=== PATIENT | female | born 1995 | race Two or more races ===

== ENCOUNTER 2024-10-29 11:49 | Emergency (ER) | payer OTHER ==
[~2024-10-29] VITALS: Ht 149.9 cm; Wt 56.7 kg
[2024-10-29] MEDS ORDERED: PRENATAL + DHA1 EAC1 PO (13:08)
[2024-10-29 13:54] LABS: MEAN CELL VOLUME 87.9 fL (80.00-100.00); MEAN CORPUSCULAR HEMOGLOBIN 30.9 pg (27.00-32.0); MEAN CORPUSCULAR HGB CONC 35.1 g/dl (32.0-36.0); PLATELET COUNT 316 K/uL (150-450); RED BLOOD COUNT 4.21 M/uL (4.00-6.00); RED CELL DISTRIBUTION WIDTH 12.1 % (11.5-14.5)
== END 2024-10-29 17:38 | disposition home or self-care (01) ==
LOC: ER 11:52
PROVIDERS: Emergency Medicine
DX: Z33.1 Pregnant state, incidental (principal); R10.2 Pelvic and perineal pain

== ENCOUNTER 2024-11-29 15:47 | Outpatient (CLI) | payer OTHER ==
[~2024-11-29 15:47] MED LIST: PRENATAL + DHA1 EAC1 PO
== END 2024-11-29 15:48 | disposition home or self-care (01) ==
LOC: PRENATAL 15:47
PROVIDERS: ATTEND Obstetrics & Gynecology Maternal & Fetal Medicine
DX: O36.80X0 Pregnancy with inconclusive fetal viability, not applicable or unspecified (principal); Z36.82 Encounter for antenatal screening for nuchal translucency; Z14.8 Genetic carrier of other disease; Z3A.12 12 weeks gestation of pregnancy

== ENCOUNTER 2025-01-24 14:12 | Outpatient (CLI) | payer OTHER ==
[2025-01-24] MEDS ORDERED: FOLIC ACID0.8 M1 PO (18:49)
== END 2025-01-24 14:13 | disposition home or self-care (01) ==
LOC: PRENATAL 14:12
PROVIDERS: ATTEND Obstetrics & Gynecology Maternal & Fetal Medicine
DX: O44.00 Complete placenta previa NOS or without hemorrhage, unspecified trimester (principal); O36.1999 Maternal care for other isoimmunization, unspecified trimester, other fetus; O26.879 Cervical shortening, unspecified trimester; Z3A.21 21 weeks gestation of pregnancy

== ENCOUNTER 2025-01-25 12:45 | Day surgery (SDC) | payer OTHER ==
[2025-01-24 17:47] VITALS: BP 113/69
[2025-01-24 18:32] LABS: BASO % 0.4 % (0.1-1.2); EOS # 0.06 (0.04-0.54); EOS % 0.6 % (0.7-7.0); HEMATOCRIT 31.7 % (34.1-44.9); HEMOGLOBIN 11.6 g/dL (11.2-15.7); LYMPH # 1.29 (1.18-3.74); LYMPH % 12.8 % (19.3-53.1); MEAN CORPUSCULAR HEMOGLOBIN 31.8 pg (25.6-32.2); MONO # 0.79 (0.24-0.82); MONO % 7.8 % (4.7-12.5); NEUT # 7.81 (1.56-6.13); NEUT % 77.3 % (34.0-71.1); PLATELET COUNT 276 K/uL (163-369); RED BLOOD COUNT 3.65 M/uL (3.93-5.22); RED CELL DISTRIBUTION WIDTH 12.8 % (11.6-14.4)
[2025-01-24 19:01] LABS: INR 0.94; PARTIAL THROMBOPLASTIN TIME 23.7 SECONDS (22.0-34.0); PROTHROMBIN TIME 10.3 SECONDS (9.0-11.5)
[2025-01-24 19:06] LABS: ALBUMIN 3.2 gm/dL (3.4-5.0); BILIRUBIN TOTAL 0.27 mg/dL (0.3-1.2); CALCIUM 8.7 mg/dL (8.5-10.1); CREATININE SERUM 0.52 mg/dL (0.55-1.02); GFR 141.45; GLOBULINA 3.4 G/DL (2.4-3.5); POTASSIUM 3.9 mEq/L (3.5-5.1); TOTAL PROTEIN 6.6 gm/dL (6.4-8.2)
[2025-01-24 19:42] VITALS: BP 106/64
[2025-01-24 23:14] VITALS: BP 108/67
[~2025-01-25] VITALS: Ht 149.9 cm; Wt 59.9 kg
[2025-01-25 04:32] VITALS: BP 102/62; BP 113/72
[2025-01-25 06:22] VITALS: BP 98/61; O2SAT 98
[2025-01-25 12:10] VITALS: BP 108/64
[~2025-01-25 12:45] MED LIST changes: +AZITHROMYCIN 500 MG TABLET PO ONE; +AZITHROMYCIN 500 MG VIAL IV ONE; +AZITHROMYCIN 500 MG VIAL IV SCH; +FOLIC ACID0.8 M1 PO; +INDOMETHACIN 50 MG CAPSULE PO NR; +INDOMETHACIN 50 MG CAPSULE PO SCH; +RINGERS SOLUTION,LACTATED 1,000 ML IV SCH
[2025-01-25 12:50] VITALS: BP 108/64; BP 108/67
[2025-01-25] MEDS ORDERED: POVIDONE-IODINE 118 ML BOTT TOP ONE (14:45)
[2025-01-25 21:20] VITALS: BP 131/76; O2SAT 100
[2025-01-31] MEDS ORDERED: AZITHROMYCIN 500 MG TABLET PO ONE (08:30)
[2025-02-01] MEDS ORDERED: AZITHROMYCIN500 MG PO ×2 (08:59→09:01)
[2025-02-01 17:08] LABS: mycoplasma hominis Negative (Negative); ureaplasma urealyticum Positive (Negative)
== END 2025-01-25 19:00 | disposition home or self-care (01) ==
LOC: OBS/DEL 12:45 → LDR 12:45 → OBS/DEL 12:45 → CIR.AMB 12:45 → EDSTATUS 14:15 → CIR.AMB 19:00 → O/R 21:26 → LDR 21:26
PROVIDERS: Obstetrics & Gynecology Maternal & Fetal Medicine; ATTEND Obstetrics & Gynecology
DX: O34.32 Maternal care for cervical incompetence, second trimester (principal); Z3A.20 20 weeks gestation of pregnancy; O26.872 Cervical shortening, second trimester

== ENCOUNTER 2025-02-10 08:28 | Outpatient (CLI) | payer OTHER ==
[~2025-02-10 08:28] MED LIST changes: -AZITHROMYCIN 500 MG TABLET PO ONE; -AZITHROMYCIN 500 MG VIAL IV ONE; -AZITHROMYCIN 500 MG VIAL IV SCH; +AZITHROMYCIN500 MG PO; -INDOMETHACIN 50 MG CAPSULE PO NR; -INDOMETHACIN 50 MG CAPSULE PO SCH; -RINGERS SOLUTION,LACTATED 1,000 ML IV SCH
== END 2025-02-10 08:29 | disposition home or self-care (01) ==
LOC: PRENATAL 08:28
PROVIDERS: ATTEND Obstetrics & Gynecology Maternal & Fetal Medicine
DX: O36.8199 Decreased fetal movements, unspecified trimester, other fetus (principal); O26.879 Cervical shortening, unspecified trimester; Z3A.25 25 weeks gestation of pregnancy

== ENCOUNTER 2025-02-10 11:49 | Outpatient (CLI) | payer OTHER | END 2025-02-10 11:56 | disposition home or self-care (01) | LOC: LAB 11:49 | PROVIDERS: ATTEND Obstetrics & Gynecology Maternal & Fetal Medicine | DX: O26.879 Cervical shortening, unspecified trimester (principal); O09.219 Supervision of pregnancy with history of pre-term labor, unspecified trimester ==

== ENCOUNTER → 2025-02-21 08:41 | Outpatient (CLI) | payer OTHER | END | disposition home or self-care (01) | LOC: PRENATAL 08:41 | PROVIDERS: ATTEND Obstetrics & Gynecology Maternal & Fetal Medicine | DX: O26.849 Uterine size-date discrepancy, unspecified trimester (principal); O36.1999 Maternal care for other isoimmunization, unspecified trimester, other fetus; O26.879 Cervical shortening, unspecified trimester; Z3A.24 24 weeks gestation of pregnancy ==

== ENCOUNTER 2025-03-21 10:46 | Outpatient (CLI) | payer OTHER | END 2025-03-21 10:47 | disposition home or self-care (01) | LOC: PRENATAL 10:46 | PROVIDERS: ATTEND Obstetrics & Gynecology Maternal & Fetal Medicine | DX: O26.849 Uterine size-date discrepancy, unspecified trimester (principal); O26.879 Cervical shortening, unspecified trimester; Z3A.29 29 weeks gestation of pregnancy ==

== ENCOUNTER 2025-04-29 08:15 | Outpatient (CLI) | payer OTHER | END 2025-04-29 08:16 | disposition home or self-care (01) | LOC: PRENATAL 08:15 | PROVIDERS: ATTEND Obstetrics & Gynecology Maternal & Fetal Medicine | DX: O26.849 Uterine size-date discrepancy, unspecified trimester (principal); O36.8199 Decreased fetal movements, unspecified trimester, other fetus; O36.1999 Maternal care for other isoimmunization, unspecified trimester, other fetus; O26.879 Cervical shortening, unspecified trimester; Z3A.35 35 weeks gestation of pregnancy ==

== ENCOUNTER 2025-05-02 17:15 | Inpatient (IN) | payer OTHER ==
[~2025-05-02] VITALS: Ht 149.9 cm; Wt 64.0 kg
[2025-05-02 16:50] VITALS: BP 126/82
[2025-05-02] MEDS ORDERED: RINGERS SOLUTION,LACTATED 1,000 ML IV SCH (17:45)
[2025-05-02] MEDS ORDERED: NIFEDIPINE 30 MG TAB.SA.OSM PO SCH (17:49)
[2025-05-02] MEDS ORDERED: BETAMETHASONE ACETATE,SOD PHOS 30 MG/5 ML ML IM SCH (17:50)
[2025-05-02] MEDS ORDERED: AMPICILLIN SODIUM 2,000 MG VIAL IV ONE (18:00)
[2025-05-02 18:10] LABS: BASO % 0.3 % (0.1-1.2); EOS # 0.05 (0.04-0.54); EOS % 0.7 % (0.7-7.0); LYMPH # 0.97 (1.18-3.74); LYMPH % 12.9 % (19.3-53.1); MEAN PLATELET VOLUME 9.40 fl (9.4-12.4); MONO # 0.78 (0.24-0.82); MONO % 10.4 % (4.7-12.5); NEUT # 5.64 (1.56-6.13); NEUT % 74.8 % (34.0-71.1); RED CELL DISTRIBUTION WIDTH 12.6 % (11.6-14.4)
[2025-05-02 18:11] LABS: URINE APPEARANCE Clear; URINE BILIRRUBIN Negative (NEGATIVE); URINE BLOOD Negative; URINE COLOR Yellow; URINE GLUCOSE Negative (NEGATIVE); URINE KETONE Trace (NEGATIVE); URINE LEUKOCYTE Moderate; URINE NITRATE Negative; URINE UROBILINOGEN 1.0 E.U./dl
[2025-05-02 18:14] LABS: URINE BACTERIA 333.5 uL (0.0-1933); URINE EPITHELIAL CELLS 57.6 uL (0.0-38.8); URINE RBC 41.6 uL (0.0-20.8); URINE WBC 248.7 uL (0.0-23.2)
[2025-05-02 18:32] LABS: BUN CREA RATIO 14.0 (7.0-25.0); CREATININE SERUM 0.63 mg/dL (0.55-1.02); GFR 113.35; GLUCOSE FASTING 84.0 mg/dL (65-100); OSMOLALITY SERUM 279.0 MOSM/KG (275-295)
[2025-05-02 18:57] VITALS: BP 116/76
[2025-05-02 19:02] LABS: URINE CAST 1.02 uL (0.0-1.40); URINE PROTEIN 100 (NEGATIVE)
[2025-05-02] MEDS ORDERED: AMPICILLIN SODIUM 1,000 MG VIAL IV SCH (21:00)
[2025-05-02 23:25] VITALS: BP 103/61; O2SAT 99
[2025-05-03] MEDS ORDERED: TERBUTALINE SULFATE 1 MG/ML AMPUL SUBCUTANEO ONE (00:45)
[2025-05-03 03:00] VITALS: BP 123/70
[2025-05-03 06:17] VITALS: BP 116/66; O2SAT 97
[2025-05-03 12:00] VITALS: BP 118/69
[2025-05-03 15:13] VITALS: BP 119/69
[2025-05-03 19:31] VITALS: BP 115/69
[2025-05-03 23:15] VITALS: BP 109/65
[2025-05-04 03:42] VITALS: BP 110/64
[2025-05-04 06:54] VITALS: BP 111/65; O2SAT 97
[2025-05-04 11:08] VITALS: BP 99/62; O2SAT 98
[2025-05-04 15:26] VITALS: BP 101/54
[2025-05-04 19:27] VITALS: BP 108/69
[2025-05-04 23:30] VITALS: BP 121/63
[2025-05-05] VITALS (9 sets, daily range): BP systolic 100–131; BP diastolic 60–91; O2SAT 97
[2025-05-05] MEDS ORDERED: OXYTOCIN 500 ML IV SCH (09:45)
[2025-05-05] MEDS ORDERED: MORPHINE SULFATE 4 MG/ML VIAL IV ONE (13:00)
[2025-05-05] MEDS ORDERED: MORPHINE SULFATE 4 MG/ML CARTRIDGE IV STA (17:14)
[2025-05-05] MEDS ORDERED: CHLORHEXIDINE GLUCONATE 120 ML BOTTLE TOP SCH (18:30)
[2025-05-05] MEDS ORDERED: OXYTOCIN 10 UNITS/ML VIAL IM STA (18:30)
[2025-05-05] MEDS ORDERED: OXYTOCIN 1,000 ML IV SCH (18:30)
[2025-05-05] MEDS ORDERED: LIDOCAINE HCL 1% 10ML VIAL IJ ONE (18:45)
[2025-05-05] MEDS ORDERED: ERYTHROMYCIN BASE OPHT 1GM EACH TUBE OP ONE (18:45)
[2025-05-05 21:54] LABS: BASO % 0.1 % (0.1-1.2); EOS # 0.00 (0.04-0.54); EOS % 0.0 % (0.7-7.0); LYMPH # 0.73 (1.18-3.74); LYMPH % 4.9 % (19.3-53.1); MEAN PLATELET VOLUME 9.40 fl (9.4-12.4); MONO # 1.21 (0.24-0.82); MONO % 8.1 % (4.7-12.5); NEUT # 12.73 (1.56-6.13); NEUT % 85.4 % (34.0-71.1); RED CELL DISTRIBUTION WIDTH 12.8 % (11.6-14.4)
[2025-05-06 01:23] VITALS: BP 100/60
[2025-05-06 08:33] VITALS: BP 107/70
[2025-05-06 13:44] VITALS: BP 105/60
[2025-05-06 16:00] VITALS: BP 100/62
[2025-05-07 00:54] VITALS: BP 90/66
[2025-05-07 08:22] VITALS: BP 110/67
== END 2025-05-07 17:29 | disposition home or self-care (01) | DRG 805 ==
LOC: LDR 17:15 → OB/GYN 05-05 18:29
PROVIDERS: ADMIT Obstetrics & Gynecology; ATTEND Obstetrics & Gynecology
PROC: 4A1HXCZ Monitoring of Products of Conception, Cardiac Rate, External Approach (ICD-10-PCS; 2025-05-02)
PROC: BY4FZZZ Ultrasonography of Third Trimester, Single Fetus (ICD-10-PCS; 2025-05-03)
PROC: BU4CZZZ Ultrasonography of Uterus and Ovaries (ICD-10-PCS; 2025-05-03)
PROC: 10E0XZZ Delivery of Products of Conception, External Approach (ICD-10-PCS; principal; 2025-05-05)
PROC: 0KQM0ZZ Repair Perineum Muscle, Open Approach (ICD-10-PCS; 2025-05-05)
PROC: 3E033VJ Introduction of Other Hormone into Peripheral Vein, Percutaneous Approach (ICD-10-PCS; 2025-05-05)
DX: O70.1 Second degree perineal laceration during delivery (principal); O34.33 Maternal care for cervical incompetence, third trimester; Z37.0 Single live birth; O60.14X0 Preterm labor third trimester with preterm delivery third trimester, not applicable or unspecified; O41.03X0 Oligohydramnios, third trimester, not applicable or unspecified; O42.013 Preterm premature rupture of membranes, onset of labor within 24 hours of rupture, third trimester; O26.843 Uterine size-date discrepancy, third trimester; O36.8130 Decreased fetal movements, third trimester, not applicable or unspecified; O26.853 Spotting complicating pregnancy, third trimester; Z3A.34 34 weeks gestation of pregnancy; O26.893 Other specified pregnancy related conditions, third trimester; R10.2 Pelvic and perineal pain